=== PATIENT | male | born 1935 | race Caucasian/White ===

== ENCOUNTER → 2022-01-24 14:26 | Outpatient (CLI) | payer OTHER, SELFPAY ==
--- NOTE | 2022-01-24 14:29 | DI.ECHO.S_ITS ---
[facility] +---------+ : : [address] : : : : [address] : : : : [place], : : : : [place] [id number] : : : : Phone: [phone] Echocardiogram Report + + :Name: ABBY CARR Study Date: 01/24/2022 Height: 73 in : :[facility] ReadingLocation: Weight: 171 lb : : Gender: Male BSA: 2.0 m2 : :: 1935 Age: 86 yrs BP: 137/97 mmHg: :Reason For Study: Aortic valve stenosis : :Ordering Physician: ROSY, : :Marybeth DOBBS Performed By: Ramirez Zavala : :Referring: Marybeth GALLEGOS : + + Interpretation Summary There is mild concentric left ventricular hypertrophy. The ejection fraction is estimated to be 60-65%. Diastolic function could not be accurately assessed due to unobtainable data. The right ventricle is moderately dilated. The right ventricular systolic function is normal. The right atrium is moderately dilated. There is mild mitral regurgitation. There is moderate to severe aortic stenosis. There is mild aortic regurgitation. There is moderate tricuspid regurgitation. PASP is approximately 35 to 40 mmHg. Compared to the prior study dated 10/01/2017, the severity of aortic stenosis has increased. Procedure: A two-dimensional transthoracic echocardiogram with color flow and Doppler was performed. The study quality was technically adequate. Comparison is made with the echocardiogram of 10/01/2017. Left Ventricle: The left ventricle is normal in size. There is mild concentric left ventricular hypertrophy. Left ventricular systolic function is normal. The ejection fraction is estimated to be 60-65%. There are no obvious focal wall motion abnormalities noted but poor endocardial definition reduces the sensitivity for the detection of such. Diastolic function could not be accurately assessed due to unobtainable data. Right Ventricle: The right ventricle is moderately dilated. The right ventricular systolic function is normal. Atria: The left atrial size is normal. The right atrium is moderately dilated. The interatrial septum grossly appears intact with no obvious evidence for an atrial septal defect. Mitral Valve: The mitral valve leaflets are moderately calcified. There is mild mitral annular calcification. There is mild mitral regurgitation. Aortic Valve: The aortic valve is severely calcified. There is severely reduced leaflet mobility. The aortic valve is not well visualized. The calculated aortic valve area is 0.7 cm2. The aortic valve mean gradient is 30 mmHg. There is moderate to severe aortic stenosis. The LVOT to AV VTI ratio is 0.26. There is mild aortic regurgitation. Tricuspid Valve: The tricuspid valve is normal in structure and function. There is moderate tricuspid regurgitation. PASP is approximately 35 to 40 mmHg. Pulmonic Valve: The pulmonic valve is normal in structure and function. There is trace pulmonic regurgitation. Great Vessels: The aortic root is mildly dilated. The dimensions of the ascending aorta are normal. The IVC is dilated (diameter is greater than 2.1 cm) and it collapses less than 50% with a sniff. This suggests a high right atrial pressure of 15 mm Hg. Pericardium/ Pleura There is no pericardial effusion. There is no pleural effusion. MMode/2D Measurements & Calculations LVIDd: 4.0 cm LVOT diam: 1.9 cm LVIDs: 2.8 cm Ao root diam: 4.1 cm IVSd: 1.1 cm asc Aorta Diam: 3.3 cm LVPWd: 1.1 cm LV pena. diameter/BSA (cm/m^2): 2.0 LV sys. diameter/BSA (cm/m^2): 1.4 FS: 30.0 % LA dimension: 3.9 cm RA long axis: 6.1 cm LA A2 area: 14.4 cm2 LA A4 area: 18.9 cm2 LA length (vol): 5.2 cm LA vol: 44.7 ml LA vol index: 22.2 ml/m2 IVC diam: 2.4 cm Doppler Measurements & Calculations Ao V2 max: 315.7 cm/sec LVOT Max Philippe: 84.9 cm/sec Ao V2 mean: 219.4 cm/sec LV V1 max P.9 mmHg Ao V2 VTI: 64.1 cm LV V1 VTI: 19.2 cm Ao max P.0 mmHg Ao mean P.2 mmHg JACK(I,D): 0.85 cm2 TR max philippe: 224.0 cm/sec JACK(V,D): 0.76 cm2 TR max P.1 mmHg JACK indexed to BSA (cm^2/m^2): 0.42 sev ratio: 0.30 SV(LVOT): 54.4 ml AV VR_phl: 0.28 JACK(VTI)/BSA_phl: 0.44 Reading Physician:09:28 AM
== END ==
PROVIDERS: Family Provider Family Medicine; PCP Family Medicine; Referring Provider Surgery; Visit Provider Surgery
DX: I65.23 Occlusion and stenosis of bilateral carotid arteries (principal); I08.3 Combined rheumatic disorders of mitral, aortic and tricuspid valves
CPT/HCPCS: 93306